=== PATIENT | female | born 1965 | race Caucasian/White ===

== ENCOUNTER 2019-03-07 16:28 | Emergency (ER) | payer BC ==
[~2019-03-07] VITALS: Ht 167.6 cm; Wt 56.7 kg
[2019-03-07] MEDS ORDERED: CIPROFLOXACIN 0.3%OPTH(EYE) SOL 5ML EACHEYE ONE (17:30)
[2019-03-07 18:19] VITALS: BP 126/85
--- NOTE | 2019-03-08 02:30 | NUR ---
from [facility] called to follow up on request from jaqueline. Explained that dayshift staff are no longer here and patient has been discharged. Verified that discharge diagnosis wasn't serious and patient discharged home in stable condition. Asked if we had any idea why she came to [place] to be seen and again stated that this was dayshift and all dayshift staff are long gone. Deputy Barrera #[id number] [facility]
== END 2019-03-07 18:32 | disposition home or self-care (01) ==
LOC: ER 16:28
DX: T15.92XA Foreign body on external eye, part unspecified, left eye, initial encounter (principal); T15.91XA Foreign body on external eye, part unspecified, right eye, initial encounter; H10.9 Unspecified conjunctivitis; I10 Essential (primary) hypertension; X58.XXXA Exposure to other specified factors, initial encounter; Y93.9 Activity, unspecified; Y99.8 Other external cause status; Y92.89 Other specified places as the place of occurrence of the external cause